=== PATIENT | male | born 1975 | race Caucasian/White ===

== ENCOUNTER 2017-08-12 15:08 | Observation (INO) ==
--- NOTE | 2017-08-12 15:23 | Emergency Department Note ---
Disposition Clinical Impression: Hyperglycemia, Elevated blood ketone body level, Hyponatremia Disposition: Admitted As Inpatient Condition: Fair Time of Disposition: 17:58 General Adult HPI - General Chief complaint: ED General Medical Stated complaint: Hyperglycemia Time Seen by Provider: 08/12/17 15:11 Source: patient, EMS Mode of arrival: EMS Limitations: no limitations Nursing Notes Reviewed: Yes Vital Signs Reviewed: Yes - History of Present Illness HPI Narrative: Patient is a 42-year-old male that presents the emergency department via EMS for hyperglycemia. Patient states that he has not been feeling well for the past couple of weeks and states that he has been feeling nauseated, having vision changes and having some tingling in his hands. Patient states that he takes metformin and glipizide for his type 2 diabetes. Patient denies any insulin use. Patient states that he has been compliant with his medications. Patient does state that he has never been in DKA. States that he has never had a blood glucose this high before. The blood glucose was reported by urgent care to be greater than 600. EMS also stated that there glucometer read high which would indicate a blood sugar greater than 600. Patient denies any vomiting but does state that he has been nauseated. Denies any nausea at this time. Patient also reports that he has had a fever and chills recently. Patient also reports that he has had a significant amount of thirst and urination. Pain Scale: 0 - Related Data Home Medications Medication Instructions Recorded Confirmed Atorvastatin 08/12/17 Glimepiride 08/12/17 Lisinopril-HCTZ 10-12.5 08/12/17 Loratadine 08/12/17 Metoprolol 08/12/17 Sertraline HCl 08/12/17 metFORMIN 08/12/17 Allergies Allergy/AdvReac Type Severity Reaction Status Date / Time No Known Allergies Allergy Verified 08/12/17 14:14 All systems ED: reviewed and negative except as stated. Constitutional: Reports: fever, chills Cardiovascular: Denies: chest pain Respiratory: Denies: dyspnea Gastrointestinal: Reports: nausea. Denies: abdominal pain, vomiting Genitourinary: Reports: frequency. Denies: dysuria Endocrine: Reports: polydipsia, polyuria Past Medical History - Past Medical History Medical history: Reports: atrial fibrillation, diabetes, hyperlipidemia, hypertension - Social History Smoking Status: Current every day smoker Smokeless Tobacco Status: No Alcohol use: Reports: none Drug use: Reports: none Physical Exam - General Limitations: no limitations General appearance: alert, in no apparent distress - Head Head exam: atraumatic, normocephalic - Eye Eye exam: Present: normal appearance, EOMI - Neck Neck exam: Present: normal inspection, full ROM, trachea midline - Respiratory Respiratory exam: Present: normal lung sounds bilaterally. Absent: respiratory distress, wheezes - Cardiovascular Cardiovascular exam: Present: regular rate, normal rhythm, normal heart sounds, +S1, +S2 - Abdominal Exam Abdominal exam: Present: soft, Non-Tender, normal bowel sounds - Neurological Exam Neurological exam: Present: alert, oriented X3 - Psychiatric Psychiatric exam: Present: normal affect, normal mood - Skin Skin exam: Present: warm, dry, intact Course - Reevaluation(s) Reevaluation #1: Patient's blood glucose was rechecked after receiving a little over a liter of fluids and his blood sugar was 463. Due to the patient having a potassium of 4.0 we will give 40 of oral potassium here in the emergency department prior to the patient being admitted to the hospital. Time: 17:19 Vital Signs Temperature 98.7 F 08/12/17 15:09 Pulse Rate 98 08/12/17 15:09 Respiratory Rate 18 08/12/17 15:09 Blood Pressure 124/76 08/12/17 15:09 O2 Sat by Pulse Oximetry 98 08/12/17 15:09 Temperature 98.7 F 08/12/17 15:09 Pulse Rate 90 08/12/17 17:04 Respiratory Rate 16 08/12/17 17:04 Blood Pressure 124/89 08/12/17 17:04 O2 Sat by Pulse Oximetry 95 08/12/17 17:04 Oxygen Delivery Oxygen Delivery Room Air Medical Decision Making - MDM Narrative Medical decision making narrative: Due to the patient presenting with hyperglycemia and type 2 diabetes there is concern that the patient potentially be in diabetic ketoacidosis. We will obtain a CBC, CMP, point of care glucose, EKG, beta hydroxybutyric acid and a venous blood gas to evaluate this patient. Patient will also be started on IV fluids. Patient did have a significantly elevated blood glucose of 614. The patient is been given 2 liters of normal saline here in the emergency department. [facility] and 1 from the hospital. The patient's blood gas was 7.44. His sodium 1 was low at 119 however when you correct for the elevated glucose it is 131. Based on the correction I do not feel that there is any supplemental sodium that is needed at this time. I feel that due to the patient being a type II diabetic and being compliant with his medications that is necessary to admit the patient to the hospital for unknown cause of the patient's hyperglycemia. The patient does not have an anion gap at this time I do not feel the patient is in DKA. However the patient does have elevated serum ketones at this time. The patient's chest x-ray showed no acute process. I called and spoke the admitting hospitalist Dr. Mcgarry and he has accepted the patient to their service. The patient be admitted to the hospital this time for further evaluation and management. - Lab Data Lab results reviewed: Yes I reviewed the patient's lab results. Result diagrams: 08/12/17 15:35 08/12/17 15:35 Lab Results 08/12/17 08/12/17 08/12/17 Range/Units 15:35 15:35 15:35 WBC 9.2 (4.3-11.1) K/mcL RBC 5.03 (4.19-5.50) M/mcL Hgb 15.4 (12.9-16.9) g/dL Hct 41.7 (37.5-50.1) % MCV 82.9 L (83.0-100.0) fL MCH 30.6 (28.0-33.3) pg MCHC 36.9 H (31.6-35.5) g/dL RDW 12.6 (11.5-14.5) % Plt Count 295 (140-400) K/mcL MPV 10.1 (9.4-12.4) fL Immature Gran % 0.1 (0-4) % Seg Neutrophils % 70.2 % Lymphocytes % 23.2 % Monocytes % 5.4 % Eosinophils % 0.8 % Basophils % 0.3 % Neutrophils # 6.5 (1.6-8.9) K/mcL Lymphocytes # 2.1 (0.6-4.6) K/mcL Monocytes # 0.5 (0.0-1.3) K/mcL Eosinophils # 0.1 (0.0-0.6) K/mcL Basophils # 0.0 (0.0-0.2) K/mcL Immature Plt Fraction 5.6 (1.1-6.1) % VBG pH (7.32-7.42) pH Units VBG pCO2 (41-51) mmHg VBG pO2 (25-50) mmHg VBG HCO3 (21-27) mEq/L Sodium 119 L* (136-145) mEq/L Potassium 4.0 (3.5-5.1) mEq/L Chloride 83 L (98-107) mEq/L Carbon Dioxide 27 (23-29) mEq/L BUN 21 H (6-20) mg/dL Creatinine 0.87 (0.70-1.30) mg/dL Est GFR ( Amer) > 60 (> 60) Est GFR (Non-Af Amer) > 60 (> 60) BUN/Creatinine Ratio 24 (6-26) Glucose 614 H* (70-105) mg/dL Calculated Osmolality 280 (280-300) Calcium 9.9 (8.6-10.3) mg/dL Magnesium 1.9 (1.6-2.6) mg/dL Total Bilirubin 0.6 (0.3-1.0) mg/dL AST 17 (13-39) Units/L ALT 20 (7-52) Units/L Alkaline Phosphatase 111 H (34-104) Units/L Serum Total Protein 7.0 (6.4-8.9) g/dL Albumin 4.1 (3.5-5.7) g/dL Globulin 2.9 (2.4-3.5) g/dL Albumin/Globulin Ratio 1.4 (1.1-2.2) Beta-Hydroxybutyric Acd 0.28 H (0.02-0.27) mmol/L Urine Color (Yellow) Urine Clarity (Clear) Urine pH (5.0-8.0) pH Units Ur Specific [place] (1.010-1.025) Urine Protein (Neg-Trace) mg/dL Urine Glucose (UA) (Normal) mg/dL Urine Ketones (Negative) mg/dL Urine Blood (Negative) Urine Nitrite (Negative) Urine Bilirubin (Negative) Urine Urobilinogen (Normal) mg/dL Ur Leukocyte Esterase (Negative) Ur Culture Indicated? (NO) 08/12/17 08/12/17 Range/Units 16:09 16:11 WBC (4.3-11.1) K/mcL RBC (4.19-5.50) M/mcL Hgb (12.9-16.9) g/dL Hct (37.5-50.1) % MCV (83.0-100.0) fL MCH (28.0-33.3) pg MCHC (31.6-35.5) g/dL RDW (11.5-14.5) % Plt Count (140-400) K/mcL MPV (9.4-12.4) fL Immature Gran % (0-4) % Seg Neutrophils % % Lymphocytes % % Monocytes % % Eosinophils % % Basophils % % Neutrophils # (1.6-8.9) K/mcL Lymphocytes # (0.6-4.6) K/mcL Monocytes # (0.0-1.3) K/mcL Eosinophils # (0.0-0.6) K/mcL Basophils # (0.0-0.2) K/mcL Immature Plt Fraction (1.1-6.1) % VBG pH 7.44 H (7.32-7.42) pH Units VBG pCO2 42 (41-51) mmHg VBG pO2 79 H (25-50) mmHg VBG HCO3 29 H (21-27) mEq/L Sodium (136-145) mEq/L Potassium (3.5-5.1) mEq/L Chloride (98-107) mEq/L Carbon Dioxide (23-29) mEq/L BUN (6-20) mg/dL Creatinine (0.70-1.30) mg/dL Est GFR ( Amer) (> 60) Est GFR (Non-Af Amer) (> 60) BUN/Creatinine Ratio (6-26) Glucose (70-105) mg/dL Calculated Osmolality (280-300) Calcium (8.6-10.3) mg/dL Magnesium (1.6-2.6) mg/dL Total Bilirubin (0.3-1.0) mg/dL AST (13-39) Units/L ALT (7-52) Units/L Alkaline Phosphatase (34-104) Units/L Serum Total Protein (6.4-8.9) g/dL Albumin (3.5-5.7) g/dL Globulin (2.4-3.5) g/dL Albumin/Globulin Ratio (1.1-2.2) Beta-Hydroxybutyric Acd (0.02-0.27) mmol/L Urine Color Yellow (Yellow) Urine Clarity Clear (Clear) Urine pH 6.0 (5.0-8.0) pH Units Ur Specific [place] > 1.030 H (1.010-1.025) Urine Protein Negative (Neg-Trace) mg/dL Urine Glucose (UA) >=1000 H (Normal) mg/dL Urine Ketones Negative (Negative) mg/dL Urine Blood Negative (Negative) Urine Nitrite Negative (Negative) Urine Bilirubin Negative (Negative) Urine Urobilinogen Normal (Normal) mg/dL Ur Leukocyte Esterase Negative (Negative) Ur Culture Indicated? NO (NO) - Radiology Data Radiology results reviewed: Yes I reviewed the patient's radiology results. Chest X-Ray 08/12/17 15:52 IMPRESSION: No acute process. D/ / Lino Rios MD / Lino Rios MD Interpreting Provider: Lino Rios MD - EKG Data EKG #1 EKG attestation: Yes I reviewed and interpreted this EKG. EKG results narrative: EKG shows a sinus rhythm at a rate of 96 bpm, MD interval of 116, QS duration 93 , QTC of 392. No evidence of STEMI and EKG.
[2017-08-12] MEDS ORDERED: 0.9 % Sodium Chloride 1,000 ML IVC ONE (15:25)
--- NOTE | 2017-08-12 15:51 | Emergency Department Note ---
Disposition Clinical Impression: Hyperglycemia, Elevated blood ketone body level, Hyponatremia Disposition: Admitted As Inpatient Condition: Fair General Adult HPI - General Chief complaint: ED General Medical Stated complaint: Hyperglycemia Time Seen by Provider: 08/12/17 15:11 Source: patient, EMS Mode of arrival: EMS Limitations: no limitations Nursing Notes Reviewed: Yes Vital Signs Reviewed: Yes - History of Present Illness Pain Scale: 0 - Related Data Home Medications Medication Instructions Recorded Confirmed Atorvastatin 40 mg PO DAILY 08/12/17 08/12/17 Glimepiride 4 mg PO DAILY 08/12/17 08/12/17 Lisinopril-HCTZ 10-12.5 20 - 25 mg PO DAILY 08/12/17 08/12/17 Loratadine 10 mg PO DAILY 08/12/17 08/12/17 Metoprolol 50 mg PO BID 08/12/17 08/12/17 Sertraline HCl 100 mg PO DAILY 08/12/17 08/12/17 metFORMIN 1,000 mg PO BID 08/12/17 08/12/17 Allergies Allergy/AdvReac Type Severity Reaction Status Date / Time No Known Allergies Allergy Verified 08/12/17 14:14 Constitutional: Reports: fever, chills Cardiovascular: Denies: chest pain Respiratory: Denies: dyspnea Gastrointestinal: Reports: nausea. Denies: abdominal pain, vomiting Genitourinary: Reports: frequency. Denies: dysuria Endocrine: Reports: polydipsia, polyuria Past Medical History - Past Medical History Medical history: Reports: atrial fibrillation, diabetes, hyperlipidemia, hypertension - Social History Smoking Status: Current every day smoker Smokeless Tobacco Status: No Alcohol use: Reports: none Drug use: Reports: none Physical Exam - General Limitations: no limitations General appearance: alert, in no apparent distress Course - Reevaluation(s) Reevaluation #1: I examined this patient and my medical decision-making was reviewed with Dr. Mckeon. I agree with the documented findings, disposition and treatment plan. This is a 42 year-old male with history of HTN, HLD, AF, and type II diabetes. He presents with symptoms suggestive of hyperglycemia, gradually worsening for the past 2 weeks: fatigue/malaise, blurred vision, polydipsia/polyuria, nausea, dry mouth, and blurred vision. He went to urgent care this afternoon and was found to have severe hyperglycemia. EMS started IVF en route. Patient denies any associated fever, skin changes, chest pain, or dyspnea. He claims compliance with his oral hypoglycemics. On exam, patient has stable vitals. Dry mucous membranes. Heart, lung exams unremarkable. We will continue to hydrate, check labs to rule out DKA and electrolyte abnormalities, and also check for underlying causes. Time: 15:48 Vital Signs Temperature 98.7 F 08/12/17 15:09 Pulse Rate 98 08/12/17 15:09 Respiratory Rate 18 08/12/17 15:09 Blood Pressure 124/76 08/12/17 15:09 O2 Sat by Pulse Oximetry 98 08/12/17 15:09 Temperature 98.7 F 08/12/17 15:09 Pulse Rate 90 08/12/17 17:04 Respiratory Rate 16 08/12/17 18:00 Blood Pressure 132/82 08/12/17 18:00 O2 Sat by Pulse Oximetry 95 08/12/17 17:04 Oxygen Delivery Oxygen Delivery Room Air Medical Decision Making - Lab Data Lab results reviewed: Yes I reviewed the patient's lab results. Lab results narrative: Hyponatremia (slightly less than predicted based on hyperglycemia) noted. Potassium 4.0. Mild ketones. Result diagrams: 08/12/17 15:35 08/12/17 15:35 Lab Results 08/12/17 08/12/17 08/12/17 Range/Units 15:35 15:35 15:35 WBC 9.2 (4.3-11.1) K/mcL RBC 5.03 (4.19-5.50) M/mcL Hgb 15.4 (12.9-16.9) g/dL Hct 41.7 (37.5-50.1) % MCV 82.9 L (83.0-100.0) fL MCH 30.6 (28.0-33.3) pg MCHC 36.9 H (31.6-35.5) g/dL RDW 12.6 (11.5-14.5) % Plt Count 295 (140-400) K/mcL MPV 10.1 (9.4-12.4) fL Immature Gran % 0.1 (0-4) % Seg Neutrophils % 70.2 % Lymphocytes % 23.2 % Monocytes % 5.4 % Eosinophils % 0.8 % Basophils % 0.3 % Neutrophils # 6.5 (1.6-8.9) K/mcL Lymphocytes # 2.1 (0.6-4.6) K/mcL Monocytes # 0.5 (0.0-1.3) K/mcL Eosinophils # 0.1 (0.0-0.6) K/mcL Basophils # 0.0 (0.0-0.2) K/mcL Immature Plt Fraction 5.6 (1.1-6.1) % VBG pH (7.32-7.42) pH Units VBG pCO2 (41-51) mmHg VBG pO2 (25-50) mmHg VBG HCO3 (21-27) mEq/L Sodium 119 L* (136-145) mEq/L Potassium 4.0 (3.5-5.1) mEq/L Chloride 83 L (98-107) mEq/L Carbon Dioxide 27 (23-29) mEq/L BUN 21 H (6-20) mg/dL Creatinine 0.87 (0.70-1.30) mg/dL Est GFR ( Amer) > 60 (> 60) Est GFR (Non-Af Amer) > 60 (> 60) BUN/Creatinine Ratio 24 (6-26) Glucose 614 H* (70-105) mg/dL Calculated Osmolality 280 (280-300) Calcium 9.9 (8.6-10.3) mg/dL Magnesium 1.9 (1.6-2.6) mg/dL Total Bilirubin 0.6 (0.3-1.0) mg/dL AST 17 (13-39) Units/L ALT 20 (7-52) Units/L Alkaline Phosphatase 111 H (34-104) Units/L Serum Total Protein 7.0 (6.4-8.9) g/dL Albumin 4.1 (3.5-5.7) g/dL Globulin 2.9 (2.4-3.5) g/dL Albumin/Globulin Ratio 1.4 (1.1-2.2) Beta-Hydroxybutyric Acd 0.28 H (0.02-0.27) mmol/L Urine Color (Yellow) Urine Clarity (Clear) Urine pH (5.0-8.0) pH Units Ur Specific [place] (1.010-1.025) Urine Protein (Neg-Trace) mg/dL Urine Glucose (UA) (Normal) mg/dL Urine Ketones (Negative) mg/dL Urine Blood (Negative) Urine Nitrite (Negative) Urine Bilirubin (Negative) Urine Urobilinogen (Normal) mg/dL Ur Leukocyte Esterase (Negative) Ur Culture Indicated? (NO) 08/12/17 08/12/17 Range/Units 16:09 16:11 WBC (4.3-11.1) K/mcL RBC (4.19-5.50) M/mcL Hgb (12.9-16.9) g/dL Hct (37.5-50.1) % MCV (83.0-100.0) fL MCH (28.0-33.3) pg MCHC (31.6-35.5) g/dL RDW (11.5-14.5) % Plt Count (140-400) K/mcL MPV (9.4-12.4) fL Immature Gran % (0-4) % Seg Neutrophils % % Lymphocytes % % Monocytes % % Eosinophils % % Basophils % % Neutrophils # (1.6-8.9) K/mcL Lymphocytes # (0.6-4.6) K/mcL Monocytes # (0.0-1.3) K/mcL Eosinophils # (0.0-0.6) K/mcL Basophils # (0.0-0.2) K/mcL Immature Plt Fraction (1.1-6.1) % VBG pH 7.44 H (7.32-7.42) pH Units VBG pCO2 42 (41-51) mmHg VBG pO2 79 H (25-50) mmHg VBG HCO3 29 H (21-27) mEq/L Sodium (136-145) mEq/L Potassium (3.5-5.1) mEq/L Chloride (98-107) mEq/L Carbon Dioxide (23-29) mEq/L BUN (6-20) mg/dL Creatinine (0.70-1.30) mg/dL Est GFR ( Amer) (> 60) Est GFR (Non-Af Amer) (> 60) BUN/Creatinine Ratio (6-26) Glucose (70-105) mg/dL Calculated Osmolality (280-300) Calcium (8.6-10.3) mg/dL Magnesium (1.6-2.6) mg/dL Total Bilirubin (0.3-1.0) mg/dL AST (13-39) Units/L ALT (7-52) Units/L Alkaline Phosphatase (34-104) Units/L Serum Total Protein (6.4-8.9) g/dL Albumin (3.5-5.7) g/dL Globulin (2.4-3.5) g/dL Albumin/Globulin Ratio (1.1-2.2) Beta-Hydroxybutyric Acd (0.02-0.27) mmol/L Urine Color Yellow (Yellow) Urine Clarity Clear (Clear) Urine pH 6.0 (5.0-8.0) pH Units Ur Specific [place] > 1.030 H (1.010-1.025) Urine Protein Negative (Neg-Trace) mg/dL Urine Glucose (UA) >=1000 H (Normal) mg/dL Urine Ketones Negative (Negative) mg/dL Urine Blood Negative (Negative) Urine Nitrite Negative (Negative) Urine Bilirubin Negative (Negative) Urine Urobilinogen Normal (Normal) mg/dL Ur Leukocyte Esterase Negative (Negative) Ur Culture Indicated? NO (NO) - Radiology Data Radiology results reviewed: Yes I reviewed the patient's radiology results. XR/XR chest 1V IMPRESSION: No acute process. - EKG Data EKG #1 EKG attestation: Yes I reviewed and interpreted this EKG. EKG shows normal: sinus rhythm Rate: normal [place]/QRS: right axis deviation (slight) Interpretation: normal EKG
[2017-08-12 15:56] LABS: Basophils % 0.3 %; Segmented Neutrophils % 70.2 %
[2017-08-12 16:12] LABS: Eosinophils # 0.1 K/mcL (0.0-0.6); Eosinophils % 0.8 %; Hematocrit 41.7 % (37.5-50.1); Hemoglobin 15.4 g/dL (12.9-16.9); Immature Granulocytes % 0.1 % (0-4); Immature Platelets 5.6 % (1.1-6.1); Lymphocytes # 2.1 K/mcL (0.6-4.6); Lymphocytes % 23.2 %; Mean Corpuscular HGB Conc 36.9 g/dL (31.6-35.5); Mean Corpuscular Hemoglobin 30.6 pg (28.0-33.3); Mean Corpuscular Volume 82.9 fL (83.0-100.0); Mean Platelet Volume 10.1 fL (9.4-12.4); Monocytes # 0.5 K/mcL (0.0-1.3); Monocytes % 5.4 %; Neutrophils # 6.5 K/mcL (1.6-8.9); Platelet Count 295 K/mcL (140-400); Red Blood Count 5.03 M/mcL (4.19-5.50); Red Cell Distribution Width 12.6 % (11.5-14.5)
[2017-08-12 16:17] LABS: VBG HCO3 29 mEq/L (21-27); VBG PCO2 42 mmHg (41-51); VBG PH 7.44 pH Units (7.32-7.42); VBG PO2 79 mmHg (25-50)
[2017-08-12 16:25] LABS: Bilirubin,Urine Negative (Negative); Blood,Urine Negative (Negative); Clarity,Urine Clear (Clear); Color,Urine Yellow (Yellow); Glucose,Urine (UA) >=1000 mg/dL (Normal); Ketones,Urine Negative (Negative); Leukocyte Esterase,Urine Negative (Negative); Nitrite,Urine Negative (Negative); Protein,Urine Negative (Neg-Trace); Specific Gravity,Urine > 1.030 (1.010-1.025); Urobilinogen,Urine Normal (Normal)
[2017-08-12 16:27] LABS: Alanine Aminotransferase 20 Units/L (7-52); Albumin 4.1 g/dL (3.5-5.7); Albumin/Globulin Ratio 1.4 (1.1-2.2); Alkaline Phosphatase 111 Units/L (34-104); Aspartate Amino Transferase 17 Units/L (13-39); BUN/Creatinine Ratio 24 (6-26); Bilirubin,Total 0.6 mg/dL (0.3-1.0); Blood Urea Nitrogen 21 mg/dL (6-20); Calcium 9.9 mg/dL (8.6-10.3); Carbon Dioxide 27 mEq/L (23-29); Chloride 83 mEq/L (98-107); Globulin 2.9 g/dL (2.4-3.5); Glucose 614 mg/dL (70-105); Magnesium 1.9 mg/dL (1.6-2.6); Osmolality,Calculated 280 (280-300); Sodium 119 mEq/L (136-145); eGFR For African Americans > 60 (> 60); eGFR For Non-African Americans > 60 (> 60)
[2017-08-12] MEDS ORDERED: Potassium Chloride Elixir 20 MEQ/15 ML UDC PO ONE (17:16)
[2017-08-12] MEDS ORDERED: Naloxone 0.4 MG/ML INJ IVP PRN (17:44)
[2017-08-12] MEDS ORDERED: 0.9 % Sodium Chloride 1,000 ML IVC SCH (17:45)
[2017-08-12] MEDS ORDERED: Dextrose Gel 15 GM/37.5 ML TUBE PO PRN ×2 (17:50)
[2017-08-12] MEDS ORDERED: *HR* Dextrose 50 % in Water (Syg) 50 ML SYRINGE IVP PRN (17:50)
[2017-08-12] MEDS ORDERED: D5% in Water 1,000 ML IVC PRN (17:50)
--- NOTE | 2017-08-12 17:56 | Internal Med History&Physical ---
Date of Encounter: 08/12/17 Time of Encounter: 17:52 Internal Medicine - H&P: HPI Chief complaint: Dizziness/visual changes Admitted From: Emergency Dept Plans for Post Hospital Care: Home History of present illness: Mr. Bautista is a 42 year old male who works in the [employer] at [employer]. Past medical history: Diabetes, hypertension, dyslipidemia, documented atrial fibrillation in the previous notes but I did not find any evidence for same. Patient may have paroxysmal atrial fibrillation. Patient is not on any anticoagulation Patient is experiencing for the past couple of weeks persistent visual changes/ dizziness/tingling numbness in bilateral upper as well as lower extremity. Today patient was experiencing dizziness which was persistently ongoing and that is the reason he checked his blood sugar which was recorded as a very high. For this reason patient came to emergency room for further evaluation. Patient denies chest pain, nausea, vomiting, dizziness and diarrhea. Workup in the emergency room: Patient was evaluated in the emergency room. Baseline labs were drawn. Noted that patient's capillary blood glucose/serum glucose was more than 600. Patient received IV fluids. Potassium was replaced. Reason for admission: Uncontrolled hyperglycemia likely secondary to noncompliance/progression of the disease Family history: Noncontributory Past Med Surg Social Fam HX - Past Medical History Medical history: atrial fibrillation, diabetes, hyperlipidemia, hypertension - Social History Smoking Status: Current every day smoker Smokeless Tobacco Status: No Alcohol use: none Drug use: none Internal Medicine - H&P: Meds Atorvastatin 40 mg PO DAILY 08/12/17 [History] Glimepiride 4 mg PO DAILY 08/12/17 [History] Lisinopril-HCTZ 10-12.5 20 - 25 mg PO DAILY 08/12/17 [History] Loratadine 10 mg PO DAILY 08/12/17 [History] Metoprolol 50 mg PO BID 08/12/17 [History] Sertraline HCl 100 mg PO DAILY 08/12/17 [History] metFORMIN 1,000 mg PO BID 08/12/17 [History] 3 Allergy/AdvReac Type Severity Reaction Status Date / Time No Known Allergies Allergy Verified 08/12/17 14:14 All Systems PM: A 10-system review of systems was performed and is negative for pertinent findings except as documented above in the HPI. - Constitutional Constitutional: excessive sweating, fatigue, lethargy, malaise, weakness, weight gain, no chills, no fever(s), no night sweats - EENT Eyes: no change in vision, no discharge, no pain, no photophobia Ears: no ear discharge, no ear pain, no tinnitus Nose, mouth and throat: no dysphagia, no nasal discharge, no neck pain, no sore throat - Cardiovascular Cardiovascular ROS IM: no chest pain, no diaphoresis, no dyspnea, no lightheadedness, no palpitations, no syncope - Respiratory Respiratory: no cough, no dyspnea, no wheezing, no excessive phlegm production - Gastrointestinal Gastrointestinal: no abdominal pain, no diarrhea, no hematemesis, no hematochezia, no melena, no nausea, no vomiting - Musculoskeletal Musculoskeletal ROS IM: no numbness, no tingling - Integumentary Integumentary IM: no rash, no unusual bruising - Neurological Neurological ROS: no confusion, no convulsions, no focal weakness, no numbness, no tingling, no tremor(s) - Hematologic/Lymphatic Hematologic/Lymphatic: no easy bruising - Constitutional Vitals: Temp Pulse Resp BP Pulse Ox 98.7 F 90 16 124/89 95 08/12/17 15:09 08/12/17 17:04 08/12/17 17:04 08/12/17 17:04 08/12/17 17:04 General appearance: Present: A&O X 3, pleasant, no acute distress, answers questions appropriately - Head Head exam: Present: atraumatic, normocephalic - Eye Eye exam: Present: PERRL, conjuntiva pink, sclera anicteric Pupils: Present: PERRL - Neck Neck exam general surgery: Present: supple, trachea midline. Absent: lymphadenopathy - Respiratory Respiratory exam: Present: CTAB. Absent: accessory muscle use, rales, rhonchi, wheezes - Cardiovascular Cardiovascular exam: Present: RRR, +S1, +S2. Absent: diastolic murmur, gallop, rubs, systolic murmur - GI/Abdominal GI/Abdominal exam: Present: normal bowel sounds, soft, no peritoneal signs. Absent: distended, tenderness - Extremities Exam Extremities exam: Present: warm, radial pulses palpable and symmetrical. Absent : calf tenderness, cyanotic, pedal edema - Neurological Exam Neurological exam: Present: CN II-XII intact, oriented X3, no focal deficits. Absent: pronater drift, facial droop, speech deficit - Skin Skin exam: Present: dry, intact Internal Med - H&P Results - Labs CBC & Chem 7: 08/12/17 15:35 08/12/17 15:35 - Assessment and plan (1) Hyperglycemia Current Visit: Yes Status: Acute Assessment and plan: Patient does have type 2 diabetes mellitus. He is taking presently oral hypoglycemic agent. Either this is a noncompliance/progression of disease. Patient blood sugar is more than 600. Patient might need a insulin to control his blood sugar. Sodium: 119: Pseudohyponatremia No anion gap noted. VBG pH: 7.44. Assessment: Uncontrolled diabetes mellitus likely secondary to progression of disease in/ noncompliance. Plan: Basal insulin: Levemir 32 units in the night. Nutritional insulin: Humalog 10 units 3 times a day. Correctional insulin: 3 times a day at bedtime. I examined this patient in the emergency room #18. Plan of care explained to the patient. He verbalized understanding. We will continue to monitor patient's blood sugar very closely. (2) Vision changes Current Visit: No Status: Acute Assessment and plan: Likely secondary to hyperglycemia (3) Hypertension Current Visit: Yes Status: Acute Assessment and plan: Patient is presently on lisinopril/metoprolol/hydrochlorothiazide. We will continue his home medication. Patient's blood pressure is within acceptable range. Continue blood pressure monitoring as inpatient Qualifiers: Hypertension type: essential hypertension Qualified Code(s): I10 - Essential (primary) hypertension (4) Dyslipidemia Current Visit: Yes Status: Acute Assessment and plan: Patient is presently taking Lipitor 40 mg. we will get lipid panel tomorrow morning. (5) DVT prophylaxis Current Visit: Yes Status: Acute Assessment and plan: Heparin Medical decision making: This patient has a moderate to severe risk of worsening in spite of being on appropriate medication due to the underlying complex medical condition. - Time Spent With Patient Total time spent is greater than 50% in coordination of care (as documented) at patient's floor/unit and/or counseling patient:
[2017-08-12] MEDS: Insulin LISPRO 300 UNITS/3 ML VIAL SQ SCH (18:51)
[2017-08-12] MEDS: *HR* Heparin 5,000 UNIT/ML VIAL SQ SCH (20:51)
[2017-08-12] MEDS ORDERED: Insulin DETEMIR 100 UNIT/ML X5UNITS SQ SCH (21:00)
[2017-08-13 01:38] LABS: Basophils % 0.4 %; Eosinophils # 0.1 K/mcL (0.0-0.6); Hematocrit 40.3 % (37.5-50.1); Hemoglobin 14.5 g/dL (12.9-16.9); Immature Granulocytes % 0.1 % (0-4); Lymphocytes # 3.2 K/mcL (0.6-4.6); Lymphocytes % 39.5 %; Mean Corpuscular Hemoglobin 30.4 pg (28.0-33.3); Mean Corpuscular Volume 84.5 fL (83.0-100.0); Mean Platelet Volume 9.7 fL (9.4-12.4); Monocytes # 0.4 K/mcL (0.0-1.3); Monocytes % 5.2 %; Neutrophils # 4.3 K/mcL (1.6-8.9); Platelet Count 239 K/mcL (140-400); Red Blood Count 4.77 M/mcL (4.19-5.50); Red Cell Distribution Width 12.6 % (11.5-14.5); Segmented Neutrophils % 53.8 %
[2017-08-13 02:10] LABS: Alanine Aminotransferase 18 Units/L (7-52); Albumin 3.8 g/dL (3.5-5.7); Albumin/Globulin Ratio 1.4 (1.1-2.2); Alkaline Phosphatase 95 Units/L (34-104); Aspartate Amino Transferase 17 Units/L (13-39); BUN/Creatinine Ratio 21 (6-26); Bilirubin,Total 0.5 mg/dL (0.3-1.0); Blood Urea Nitrogen 14 mg/dL (6-20); Carbon Dioxide 27 mEq/L (23-29); Chloride 94 mEq/L (98-107); Chol/HDL Ratio 8.2 (0-4.9); Cholesterol 188 mg/dL (< 200); Globulin 2.7 g/dL (2.4-3.5); Glucose 312 mg/dL (70-105); HDL Cholesterol 23 mg/dL (40-59); Magnesium 1.7 mg/dL (1.6-2.6); Osmolality,Calculated 278 (280-300); Phosphorous 2.9 mg/dL (2.7-4.5); Potassium 3.2 mEq/L (3.5-5.1); Sodium 128 mEq/L (136-145); Total Protein 6.5 g/dL (6.4-8.9); Triglycerides 1060 mg/dL (< 150); eGFR For African Americans > 60 (> 60); eGFR For Non-African Americans > 60 (> 60)
[2017-08-13 02:57] LABS: Activated Partial Thrombo Time 25.3 Seconds (26.0-36.0); INR 1.1; Prothrombin Time 11.4 Seconds (9.4-12.1)
[2017-08-13] MEDS: *HR* Heparin 5,000 UNIT/ML VIAL SQ SCH (06:05)
[2017-08-13] MEDS: Insulin LISPRO 300 UNITS/3 ML VIAL SQ SCH ×4 (08:34→12:50)
--- NOTE | 2017-08-13 08:38 | Internal Med Progress Note ---
Date of Encounter: 08/13/17 Time of Encounter: 08:36 - Assessment and plan (1) Hyperglycemia Current Visit: Yes Status: Acute Assessment and plan: Known history of type II diabetes Presented with elevated blood sugars to > 600 No anion gap, normal beta hydroxybutyrate, VBG pH 7.44 Blood sugars at 312 this morning. Potassium 3.2, replaced with 40mEq x2 since admission. A1C 15.1 Uncontrolled diabetes type II likely due to dehydration and noncompliance. Continue with Levemir 32 Units qhs, Humalog 10 Units tid, and insulin correction scale. Discontinue home Amaryl. Continue with diabetic diet. Continue monitoring potassium levels and replace as needed. Will need to be discharged with insulin and diabetic education regarding. (2) Vision changes Current Visit: Yes Status: Resolved Assessment and plan: Resolved. Most likely related to hyperglycemia. (3) Hypertension Current Visit: Yes Status: Chronic Assessment and plan: Bp controlled at 127.83 this morning. Continue with home medications for chronic disease management including lisinopril, metoprolol, and hctz. Continue monitoring bp. Qualifiers: Hypertension type: essential hypertension Qualified Code(s): I10 - Essential (primary) hypertension (4) Dyslipidemia Current Visit: Yes Status: Chronic Assessment and plan: Known history of dyslipidemia on home Lipitor 40mg. TG 1060, Chol 188, LDL and VLDL TNP, HDL 23. Continue with liptor at 40mg and start fenofibrate. Consider nutrition consult. (5) DVT prophylaxis Current Visit: Yes Status: Acute Assessment and plan: Heparin for dvt ppx. - Time Spent With Patient Total time spent is greater than 50% in coordination of care (as documented) at patient's floor/unit and/or counseling patient: - Subjective Interval history: Patient reports doing well overnight. Vision blurriness has resolved since improving his sugars. Patient also reports improved energy and decrease urination. At home he is only on oral agents for his diabetes. Reports that his blood sugars may be elevated because he was dehydrated while working and kept drinking lots of Hi-C. A1C returned at 15.1. Also taking lipitor 40mg once a day for his cholesterol levels. Reports considering diet changes, but hasn't made any changes yet. Denies fevers, chills, sweats, headaches, nausea, vomiting, abdominal pain, changes in bowels, weakness, or loss of sensation. - Constitutional Vitals: Temp Pulse Resp BP Pulse Ox 98 F 87 18 127/83 95 08/13/17 07:00 08/13/17 07:00 08/13/17 07:00 08/13/17 07:00 08/13/17 04:35 General appearance: Present: A&O X 3, pleasant, no acute distress, obese, answers questions appropriately - Head Head exam: Present: atraumatic, normal inspection, normocephalic - Eye Eye exam: Present: EOMI, normal appearance - ENT ENT exam: Present: mucous membranes moist, normal exam - Neck Neck exam general surgery: Present: full ROM, normal inspection, trachea midline - Respiratory Respiratory exam: Present: CTAB. Absent: rales, rhonchi, wheezes - Cardiovascular Cardiovascular exam: Present: RRR, +S1, +S2 - GI/Abdominal GI/Abdominal exam: Present: normal bowel sounds, soft. Absent: tenderness - Extremities Exam Extremities exam: Present: full ROM, normal inspection, warm, radial pulses palpable and symmetrical. Absent: pedal edema, tenderness Additional comments: thick callus plantar surfaces of feet bilateraly, with normal sensation bilaterally and no open sores or ulcers. - Neurological Exam Neurological exam: Present: alert, oriented X3, no focal deficits - Skin Skin exam: Present: dry, intact, normal color, warm Internal Medicine: Result - Labs CBC & Chem 7: 08/13/17 01:13 08/13/17 01:13 Labs: Short CBC 08/13/17 Range/Units 01:13 WBC 8.1 (4.3-11.1) K/mcL Hgb 14.5 (12.9-16.9) g/dL Hct 40.3 (37.5-50.1) % Plt Count 239 (140-400) K/mcL Neutrophils # 4.3 (1.6-8.9) K/mcL BMP 08/13/17 01:13 Sodium 128 L D Potassium 3.2 L Chloride 94 L Carbon Dioxide 27 BUN 14 Creatinine 0.66 L Glucose 312 H Calcium 9.0 Cardiac Enzymes 08/12/17 08/13/17 08/13/17 Range/Units 18:26 01:13 06:15 Troponin I < 0.03 < 0.03 < 0.03 (< 0.04) ng/mL Liver Function 08/13/17 Range/Units 01:13 Total Bilirubin 0.5 (0.3-1.0) mg/dL AST 17 (13-39) Units/L ALT 18 (7-52) Units/L Alkaline Phosphatase 95 (34-104) Units/L Albumin 3.8 (3.5-5.7) g/dL - ABG Interpretation ABG results: PT/INR, D-dimer PT 11.4 Seconds (9.4-12.1) 08/13/17 01:13 Consult Discharge Plan - Plan Referrals: Ivette Marin DO [Primary Care Provider] -
[2017-08-13 09:10] LABS: Estimated Average Glucose 387 mg/dl; Hemoglobin A1C 15.1 %
--- NOTE | 2017-08-13 11:22 | Discharge Summary ---
<Kaden Rich - Last Filed: 08/13/17 13:32> - NOTES TO OUTPATIENT PROVIDER Notes to Outpatient Provider: Patient was admitted for hyperglycemia/ uncontrolled type II diabetes. Discharged with insulin Levemir 32 Units qhs and Humalog 10 units tid wm. Also elevated triglycerides despite lipitor 40mg so patient started on Fenofibrate. Patient will need diabetic and nutritional counseling for cholesterol. A1C 15.1 Date of Encounter: 08/13/17 Time of Encounter: 11:22 - Discharge Diagnosis (1) Hyperglycemia Priority: Primary Status: Acute Assessment and Plan: Known history of type II diabetes Presented with elevated blood sugars to > 600 No anion gap, normal beta hydroxybutyrate, VBG pH 7.44 Blood sugars at 312 this morning. Potassium 3.2, replaced with 40mEq x2 since admission. A1C 15.1 Uncontrolled diabetes type II likely due to dehydration and noncompliance. Discharge with Levemir 32 Units qhs, Humalog 10 Units tid. Discontinue home Amaryl. Continue with diabetic diet. Will need to be discharged with insulin and diabetic education regarding. (2) Vision changes Priority: Primary Status: Resolved Assessment and Plan: Resolved. Most likely related to hyperglycemia. (3) Hypertension Priority: Secondary Status: Chronic Assessment and Plan: Bp controlled at 127.83 this morning. Continue with home medications for chronic disease management including lisinopril, metoprolol, and hctz. Continue monitoring bp. Qualifiers: Hypertension type: essential hypertension Qualified Code(s): I10 - Essential (primary) hypertension (4) Dyslipidemia Priority: Secondary Status: Chronic Assessment and Plan: Known history of dyslipidemia on home Lipitor 40mg. TG 1060, Chol 188, LDL and VLDL TNP, HDL 23. Continue with liptor at 40mg and start fenofibrate. Consider nutrition consult. (5) Type II diabetes mellitus, uncontrolled Priority: Primary Status: Chronic Assessment and Plan: Known history of type II diabetes. Discontinue Amaryl. Start with Levemir 32 Units qhs and Humalog 10 Units tid. Check blood sugars: fasting in AM, before bedtime, before dinner, and 2 hours after dinner. Keep log of blood sugars. Qualifiers: Diabetes mellitus termite exterminator insulin use: unspecified assisted insulin use status Diabetes mellitus complication status: without complication Qualified Code(s): E11.65 - Type 2 diabetes mellitus with hyperglycemia Hospital course: Mr. Bautista is a 42 year old male with history of type II diabetes, htn, dyslipidemia, possible afib who presented to the ED with complaint of persistent visual changes/blurriness, tingling and numbness of his extremities, and dizziness with persistently elevated blood sugars. Patients A1C 15.1. Patient had a glucose of > 600 on arrival. Was started on insulin and potassium replaced. Patient did well overnight with control of blood sugars to 300s and resolution of dizziness, numbness, and blurry vision. Lipids were elevated on blood draw. Patient was discharged with changes to medications including Fenofibrate for dyslipidemia, Levemir 32 units qhs, and humalog 10 units tid wm. Patient to discontinue the Amaryl medication. Will need nutritional and diabetic education counseling after discharge. All questions answered and brief counseling completed with patient at bedside. Discharge discussed with: patient - Time Spent with Patient Total time spent providing and/or coordinating discharge services: - Discharge Medications Prescriptions: Fenofibrate [Tricor] 54 mg PO DAILY #30 tablet Insulin DETEMIR [Levemir] 32 unit SQ HS 30 Days #1000 units Insulin LISPRO [HumaLOG] 10 units SQ TIDWM #1000 vial Home Medications: Atorvastatin [Lipitor] 40 mg PO HS 08/12/17 [History] Lisinopril/Hydrochlorothiazide [Zestoretic 20-25 mg Tablet] 1 tab PO DAILY 08/12 [History] Loratadine [Allergy Relief] 10 mg PO DAILY 08/12/17 [History] Metformin HCl [Glucophage] 1,000 mg PO BID 08/12/17 [History] Metoprolol [Lopressor] 50 mg PO BID 08/12/17 [History] Sertraline [Zoloft] 100 mg PO DAILY 08/12/17 [History] Fenofibrate [Tricor] 54 mg PO DAILY #30 tablet 08/13/17 [Rx] Insulin DETEMIR [Levemir] 32 unit SQ HS 30 Days #1000 units 08/13/17 [Rx] Insulin LISPRO [HumaLOG] 10 units SQ TIDWM #1000 vial 08/13/17 [Rx] Allergies/Adverse Reactions: 3 Allergy/AdvReac Type Severity Reaction Status Date / Time No Known Allergies Allergy Verified 08/12/17 14:14 Date of admission: 08/12/17 16:58 Primary care physician: Ivette Marin Consults: 08/12/17 18:58 Consult to Nutrition [CONS] Routine Comment: WT LOSS OF 50LBS PER PATIENT Consulting Provider: NUTRITION Reason for Dietary Consult: Diet Education Discharging clinician: Kaden Cullen) Anticipated date of discharge: 08/13/17 - Constitutional Vitals: Temp Pulse Resp BP Pulse Ox 98 F 84 18 129/65 95 08/13/17 07:00 08/13/17 10:00 08/13/17 07:00 08/13/17 10:00 08/13/17 04:35 General appearance: Present: A&O X 3, pleasant, no acute distress, obese, answers questions appropriately - Head Head exam: Present: atraumatic, normal inspection, normocephalic - Eye Eye exam: Present: EOMI, normal appearance - ENT ENT exam: Present: mucous membranes moist, normal exam - Neck Neck exam general surgery: Present: full ROM, normal inspection, trachea midline - Respiratory Respiratory exam: Present: CTAB - Cardiovascular Cardiovascular exam: Present: RRR, +S1, +S2 - GI/Abdominal GI/Abdominal exam: Present: normal bowel sounds, soft. Absent: tenderness - Extremities Exam Extremities exam: Present: full ROM, warm, radial pulses palpable and symmetrical. Absent: pedal edema Additional comments: thick callus plantar surfaces of feet bilateraly, with normal sensation bilaterally and no open sores or ulcers - Neurological Exam Neurological exam: Present: alert, oriented X3, no focal deficits - Skin Skin exam: Present: dry, intact, normal color, warm - Patient Status Disposition: Home, Self-Care Condition: Good Functional capacity at discharge: independent ambulation Overall status at discharge: patient is progressing back to baseline - Discharge Instructions Instructions: Hyponatremia (GEN), How to Check Your Blood Sugar (GEN), Diabetes Mellitus Type 2 in Adults (GEN) Follow Up With: Ivette Marin DO [Primary Care Provider] - 08/17/17 8:30 am - Diet and Activity Activity: resume usual activities as tolerated Diet: diabetic diet, low fat, low cholesterol, low salt diet <Talon Benton - Last Filed: 08/13/17 17:53> Date of Encounter: 08/13/17 - Discharge Diagnosis (1) Hyperglycemia Status: Acute (2) Vision changes Status: Resolved (3) Hypertension Status: Chronic Qualifiers: Hypertension type: essential hypertension Qualified Code(s): I10 - Essential (primary) hypertension (4) Dyslipidemia Status: Chronic (5) Type II diabetes mellitus, uncontrolled Status: Chronic Qualifiers: Diabetes mellitus termite exterminator insulin use: unspecified assisted insulin use status Diabetes mellitus complication status: without complication Qualified Code(s): E11.65 - Type 2 diabetes mellitus with hyperglycemia Hospital course: Mr. Bautista is a 42 year old male - Time Spent with Patient Total time spent providing and/or coordinating discharge services: Date of admission: 08/12/17 16:58 Primary care physician: Ivette Marin Consults: 08/12/17 18:58 Consult to Nutrition [CONS] Routine Comment: WT LOSS OF 50LBS PER PATIENT Consulting Provider: NUTRITION Reason for Dietary Consult: Diet Education - Constitutional Vitals: Temp Pulse Resp BP Pulse Ox 97.7 F 86 18 133/83 98 08/13/17 11:46 08/13/17 11:46 08/13/17 11:46 08/13/17 11:46 08/13/17 11:46 - Attending Attestation I examined this patient 08/13, and my medical decision-making was reviewed with the Resident Physician. I agree with the documented findings, disposition and treatment plan as described except to the extent set forth below. 42 M admitted for uncontrolled DM with A1C 15, due to non-compliance, FS better controlled on insulin. Safe to discharge home on insulin and supplies, discontinue amaryl, continue metformin, add fenofibrate. follow up with PCP. Rest of details as in resident physician's documentation.
[2017-08-13] MEDS ORDERED: Fenofibrate 54 MG TABLET PO SCH (11:30)
[2017-08-13 11:50] VITALS: BP 133/83
--- NOTE | 2017-08-14 16:42 | Electrocardiograph Report ---
[place] [id number] Test Date: 2017-08-12 Pat Name: Amauri Bautista Department: 103 Room: [id number] Gender: M [place]: EKP : 1975 Requested By: [id number] Order Number: [id number] Reading MD: Amanda Celestin Measurements Intervals [place] Rate: 96 P: 34 CT: 156 QRS: 98 QRSD: 93 T: 15 QT: 338 QTc: 392 Interpretive Statements SINUS RHYTHM BORDERLINE RIGHT AXIS DEVIATION [QRS AXIS > 90] Electronically Signed On 08-14-2017 16:40:02 EDT by Amanda Celestin
== END 2017-08-13 16:40 | disposition home or self-care (01) ==
LOC: EMEROO 15:08 → 2NENU 15:08 → SUATTDRO 16:58 → 2NENU 18:14
PROVIDERS: ADMIT Internal Medicine; ATTEND Internal Medicine

== ENCOUNTER 2020-09-04 15:01 | Observation (INO) ==
[2020-09-04] MEDS ORDERED: Isovue-370 500 ML BOTTLE IVP ONE (15:15)
[2020-09-04 15:31] LABS: Hemoglobin 16.2 g/dL (12.9-16.9); Mean Corpuscular HGB Conc 35.2 g/dL (31.6-35.5); Mean Corpuscular Hemoglobin 30.5 pg (28.0-33.3); Mean Corpuscular Volume 86.5 fL (83.0-100.0); Mean Platelet Volume 8.6 fL (9.4-12.4); Platelet Count 363 K/mcL (140-400); Red Blood Count 5.32 M/mcL (4.19-5.50); Red Cell Distribution Width 12.2 % (11.5-14.5); White Blood Count 12.8 K/mcL (4.3-11.1)
[2020-09-04 15:51] LABS: BUN/Creatinine Ratio 16 (6-26); Blood Urea Nitrogen 11 mg/dL (6-20); Calcium 10.1 mg/dL (8.6-10.3); Carbon Dioxide 24 mEq/L (23-29); Chloride 102 mEq/L (98-107); Glucose 120 mg/dL (70-105); Osmolality,Calculated 279 (280-300); Sodium 134 mEq/L (136-145); Troponin I < 0.03 ng/mL (< 0.04); eGFR For African Americans > 60 (> 60); eGFR For Non-African Americans > 60 (> 60)
[2020-09-04] MEDS ORDERED: Aspirin 325 MG TABLET PO ONE (16:35)
[2020-09-04] MEDS ORDERED: Ondansetron 4 MG/2 ML VIAL IVP PRN (16:37)
[2020-09-04] MEDS ORDERED: Perflutren Lipid Microsphere 1.3 ML in 0.9 % Sodium Chloride 8.7 ML IVP PRN (16:37)
[2020-09-04] MEDS ORDERED: Naloxone 0.4 MG/ML INJ IVP PRN (16:37)
[2020-09-04] MEDS ORDERED: D5% in Water 1,000 ML IVC PRN (17:02)
[2020-09-04] MEDS ORDERED: *HR* Dextrose 50 % in Water (Vial) 50 ML VIAL IVP PRN (17:02)
[2020-09-04] MEDS ORDERED: Dextrose Gel 15 GM/37.5 ML TUBE PO PRN ×2 (17:02)
[2020-09-04 18:01] LABS: Bacteria,Urine Few per hpf (None-Few); Bilirubin,Urine Negative (Negative); Blood,Urine Negative (Negative); Clarity,Urine Clear (Clear); Color,Urine Yellow (Yellow); Glucose,Urine (UA) Normal (Normal); Ketones,Urine Negative (Negative); Leukocyte Esterase,Urine Negative (Negative); Mucus,Urine Few per lpf (None-Few); Nitrite,Urine Negative (Negative); Protein,Urine 100 mg/dL (Neg-Trace); RBC,Urine 0-3 per hpf (0-3); Specific Gravity,Urine > 1.030 (1.010-1.025); Squamous Epithelial Cell,Urine Few per hpf (None-Few); Urobilinogen,Urine Normal (Normal); WBC,Urine 0-3 per hpf (0-3)
[2020-09-04] MEDS: Nicotine 21 MG PATCH.TD24 TD SCH (18:01)
[2020-09-04 18:03] LABS: Amphetamine Screen,Urine Negative ng/mL (Cutoff=1000); Barbiturate Screen,Urine Negative ng/mL (Cutoff=200); Benzodiazepines Screen,Urine Negative ng/mL (Cutoff=200); Cannabinoid Screen,Urine Negative ng/mL (Cutoff = 50); Cocaine Screen,Urine Negative ng/mL (Cutoff= 300); Opiate Screen,Urine Negative ng/mL (Cutoff=300); Phencyclidine Screen,Urine Negative ng/mL (Cutoff=25)
[2020-09-04] MEDS ORDERED: Insulin DETEMIR 100 UNIT/ML X5UNITS SUBQ SCH (21:00)
[2020-09-05 05:53] LABS: Basophils % 0.4 %; Eosinophils # 0.2 K/mcL (0.0-0.6); Eosinophils % 1.4 %; Hematocrit 46.5 % (37.5-50.1); Hemoglobin 16.1 g/dL (12.9-16.9); Immature Granulocytes % 0.3 % (0-4); Lymphocytes # 3.8 K/mcL (0.6-4.6); Lymphocytes % 34.3 %; Mean Corpuscular HGB Conc 34.6 g/dL (31.6-35.5); Mean Corpuscular Hemoglobin 30.7 pg (28.0-33.3); Mean Corpuscular Volume 88.6 fL (83.0-100.0); Mean Platelet Volume 8.4 fL (9.4-12.4); Monocytes # 0.7 K/mcL (0.0-1.3); Monocytes % 6.1 %; Neutrophils # 6.4 K/mcL (1.6-8.9); Platelet Count 328 K/mcL (140-400); Red Blood Count 5.25 M/mcL (4.19-5.50); Red Cell Distribution Width 12.6 % (11.5-14.5); Segmented Neutrophils % 57.5 %
[2020-09-05 06:01] LABS: Estimated Average Glucose 146 mg/dl; Hemoglobin A1C 6.7 %; INR 1.1
[2020-09-05 06:16] LABS: BUN/Creatinine Ratio 17 (6-26); Blood Urea Nitrogen 13 mg/dL (6-20); Calcium 9.8 mg/dL (8.6-10.3); Carbon Dioxide 27 mEq/L (23-29); Chloride 100 mEq/L (98-107); Chol/HDL Ratio 6.9 (0-4.9); Cholesterol 248 mg/dL (< 200); Glucose 114 mg/dL (70-105); HDL Cholesterol 36 mg/dL (40-59); LDL Cholesterol,Calculated 178 mg/dL (< 100); Osmolality,Calculated 279 (280-300); Sodium 134 mEq/L (136-145); Triglycerides 169 mg/dL (< 150); Troponin I < 0.03 ng/mL (< 0.04); eGFR For African Americans > 60 (> 60); eGFR For Non-African Americans > 60 (> 60)
[2020-09-05] MEDS: Nicotine 21 MG PATCH.TD24 TD SCH (07:34)
[2020-09-05] MEDS: Insulin LISPRO 300 UNITS/3 ML VIAL SUBQ SCH ×3 (08:18→16:19)
[2020-09-05] MEDS ORDERED: Aspirin Enteric Coated 81 MG Tablet PO SCH (09:00)
[2020-09-05 14:59] VITALS: BP 144/87
== END 2020-09-05 17:41 | disposition home or self-care (01) ==
LOC: 3BNU 15:01 → EMEROOARM 15:01 → SUATTDRO 16:48 → 3BNU 17:22
PROVIDERS: ADMIT Internal Medicine; ATTEND Internal Medicine

== ENCOUNTER 2021-02-12 22:49 | Inpatient (IN) ==
[2021-02-12 23:16] LABS: Basophils % 0.3 %; Eosinophils # 0.1 K/mcL (0.0-0.6); Eosinophils % 0.6 %; Hematocrit 46.1 % (37.5-50.1); Hemoglobin 16.3 g/dL (12.9-16.9); Immature Granulocytes % 0.4 % (0-4); Lymphocytes # 4.2 K/mcL (0.6-4.6); Lymphocytes % 26.6 %; Mean Corpuscular HGB Conc 35.4 g/dL (31.6-35.5); Mean Corpuscular Hemoglobin 30.5 pg (28.0-33.3); Mean Corpuscular Volume 86.2 fL (83.0-100.0); Mean Platelet Volume 9.6 fL (9.4-12.4); Monocytes # 0.9 K/mcL (0.0-1.3); Monocytes % 5.4 %; Neutrophils # 10.6 K/mcL (1.6-8.9); Platelet Count 372 K/mcL (140-400); Red Blood Count 5.35 M/mcL (4.19-5.50); Red Cell Distribution Width 12.5 % (11.5-14.5); Segmented Neutrophils % 66.7 %; White Blood Count 15.9 K/mcL (4.3-11.1)
[2021-02-12] MEDS ORDERED: 0.9 % Sodium Chloride 1,000 ML IVC ONE (23:22)
[2021-02-12 23:26] LABS: INR 1.1; Prothrombin Time 12.1 Seconds (9.4-12.1)
[2021-02-12] MEDS ORDERED: *HR* Adenosine 6 MG/2 ML VIAL IVP ONE (23:27)
[2021-02-12 23:28] LABS: Activated Partial Thrombo Time 31.6 Seconds (26.0-36.0)
[2021-02-12 23:36] LABS: VBG HCO3 23 mEq/L (21-27); VBG PCO2 38 mmHg (41-51); VBG PH 7.39 pH Units (7.32-7.42); VBG PO2 41 mmHg (25-50)
[2021-02-12 23:49] LABS: BUN/Creatinine Ratio 10 (6-26); Blood Urea Nitrogen 8 mg/dL (6-20); Carbon Dioxide 21 mEq/L (23-29); Chloride 94 mEq/L (98-107); Glucose 690 mg/dL (70-105); Osmolality,Calculated 295 (280-300); Potassium 4.1 mEq/L (3.5-5.1); Sodium 127 mEq/L (136-145); eGFR For African Americans > 60 (> 60); eGFR For Non-African Americans > 60 (> 60)
[2021-02-12] MEDS ORDERED: 0.9 % Sodium Chloride 1,000 ML IV ONE (23:50)
[2021-02-13] MEDS ORDERED: Insulin Human Regular 10 UNIT in 0.9 % Sodium Chloride 10 ML IV ONE (00:22)
[2021-02-13 00:29] LABS: Bilirubin,Urine Negative (Negative); Blood,Urine Negative (Negative); Clarity,Urine Clear (Clear); Color,Urine Colorless (Yellow); Glucose,Urine (UA) >=1000 mg/dL (Normal); Ketones,Urine Negative (Negative); Leukocyte Esterase,Urine Negative (Negative); Nitrite,Urine Negative (Negative); Protein,Urine Negative (Neg-Trace); RBC,Urine 0-3 per hpf (0-3); Specific Gravity,Urine > 1.030 (1.010-1.025); Urobilinogen,Urine Normal (Normal); WBC,Urine 0-3 per hpf (0-3)
[2021-02-13] MEDS: Insulin DETEMIR 100 UNIT/ML X5UNITS SUBQ SCH ×2 (01:01→21:02)
[2021-02-13] MEDS: Aspirin 81 MG TAB.CHEW PO SCH ×2 (01:02→08:21)
[2021-02-13] MEDS ORDERED: Naloxone 0.4 MG/ML INJ IVP PRN (01:13)
[2021-02-13] MEDS ORDERED: Ondansetron ODT 4 MG TAB.RAPDIS SL PRN (01:13)
[2021-02-13] MEDS ORDERED: Dextrose Gel 15 GM/37.5 ML TUBE PO PRN ×4 (01:20→23:32)
[2021-02-13] MEDS ORDERED: D5% in Water 1,000 ML IVC PRN ×2 (01:20→23:32)
[2021-02-13] MEDS ORDERED: *HR* Dextrose 50 % in Water (Syg) 50 ML SYRINGE IVP PRN ×2 (01:20→23:32)
[2021-02-13] MEDS ORDERED: Perflutren Lipid Microsphere 1.3 ML in 0.9 % Sodium Chloride 8.7 ML IVP PRN (01:36)
[2021-02-13] MEDS: Nicotine 21 MG PATCH.TD24 TD SCH (01:59)
[2021-02-13] MEDS: 0.9 % Sodium Chloride 1,000 ML IVC SCH ×2 (04:33→13:50)
[2021-02-13 05:09] LABS: Basophils # 0.1 K/mcL (0.0-0.2); Basophils % 0.5 %; Eosinophils # 0.1 K/mcL (0.0-0.6); Eosinophils % 1.1 %; Hemoglobin 13.7 g/dL (12.9-16.9); Immature Granulocytes % 0.3 % (0-4); Lymphocytes # 4.2 K/mcL (0.6-4.6); Lymphocytes % 36.6 %; Mean Corpuscular HGB Conc 35.1 g/dL (31.6-35.5); Mean Corpuscular Volume 85.3 fL (83.0-100.0); Mean Platelet Volume 9.4 fL (9.4-12.4); Monocytes # 0.6 K/mcL (0.0-1.3); Monocytes % 4.9 %; Neutrophils # 6.5 K/mcL (1.6-8.9); Platelet Count 261 K/mcL (140-400); Red Blood Count 4.57 M/mcL (4.19-5.50); Red Cell Distribution Width 12.4 % (11.5-14.5); Segmented Neutrophils % 56.6 %; White Blood Count 11.6 K/mcL (4.3-11.1)
[2021-02-13 05:23] LABS: BUN/Creatinine Ratio 12 (6-26); Blood Urea Nitrogen 7 mg/dL (6-20); Calcium 8.2 mg/dL (8.6-10.3); Carbon Dioxide 23 mEq/L (23-29); Chloride 103 mEq/L (98-107); Chol/HDL Ratio 6.3 (0-4.9); Cholesterol 169 mg/dL (< 200); Glucose 292 mg/dL (70-105); HDL Cholesterol 27 mg/dL (40-59); LDL Cholesterol,Calculated 97 mg/dL (< 100); Magnesium 1.4 mg/dL (1.6-2.6); Osmolality,Calculated 285 (280-300); Phosphorous 3.2 mg/dL (2.7-4.5); Potassium 3.3 mEq/L (3.5-5.1); Sodium 133 mEq/L (136-145); Triglycerides 227 mg/dL (< 150); eGFR For African Americans > 60 (> 60); eGFR For Non-African Americans > 60 (> 60)
[2021-02-13 05:25] LABS: Albumin 3.2 g/dL (3.5-5.7); Albumin/Globulin Ratio 1.6 (1.1-2.2); Bilirubin,Direct 0.1 mg/dL (0.0-0.2); Bilirubin,Indirect 0.4 mg/dL (0.0-1.0); Bilirubin,Total 0.5 mg/dL (0.3-1.0); Total Protein 5.2 g/dL (6.4-8.9)
[2021-02-13 05:38] LABS: Thyroid Stimulating Hormone 2.026 mcIU/mL (0.340-5.600)
[2021-02-13] MEDS ORDERED: *HR* Heparin 5,000 UNIT/ML VIAL SQ SCH (06:00)
[2021-02-13] MEDS ORDERED: *HR* Heparin 5,000 UNIT/ML VIAL IVP PRN (06:09)
[2021-02-13] MEDS ORDERED: *HR* Heparin 5,000 UNIT/ML VIAL IVP ONE (06:09)
[2021-02-13 06:39] LABS: Hematocrit 38.4 % (37.5-50.1); Hemoglobin 13.9 g/dL (12.9-16.9); Mean Corpuscular HGB Conc 36.2 g/dL (31.6-35.5); Mean Corpuscular Hemoglobin 30.8 pg (28.0-33.3); Mean Corpuscular Volume 85.1 fL (83.0-100.0); Mean Platelet Volume 9.3 fL (9.4-12.4); Platelet Count 267 K/mcL (140-400); Red Blood Count 4.51 M/mcL (4.19-5.50); Red Cell Distribution Width 12.4 % (11.5-14.5); White Blood Count 11.3 K/mcL (4.3-11.1)
[2021-02-13 06:47] LABS: INR 1.1; Prothrombin Time 12.3 Seconds (9.4-12.1)
[2021-02-13 06:50] LABS: Heparin anti-factor XA UFH < 0.04 IU/mL (0.30-0.70)
[2021-02-13] MEDS ORDERED: Potassium Chloride Elixir 20 MEQ/15 ML UDC PO ONE (07:28)
[2021-02-13] MEDS ORDERED: Potassium Chloride 40 MEQ, Lidocaine 1% 2 ML in 0.9 % Sodium Chloride 500 ML IVPB ONE (07:28)
[2021-02-13] MEDS: Heparin 25,000UNIT/250ML 1/2NS 25,000 UNIT/250 ML IV.SOLN IVC SCH (07:47)
[2021-02-13] MEDS: Insulin LISPRO 300 UNITS/3 ML VIAL SUBQ SCH ×3 (08:19→16:36)
[2021-02-13 10:56] LABS: Estimated Average Glucose 315 mg/dl; Hemoglobin A1C 12.6 %
[2021-02-14] MEDS: 0.9 % Sodium Chloride 1,000 ML IVC SCH ×2 (00:06→08:38)
[2021-02-14] MEDS: Nicotine 21 MG PATCH.TD24 TD SCH (02:19)
[2021-02-14 02:51] LABS: Basophils % 0.3 %; Eosinophils # 0.2 K/mcL (0.0-0.6); Eosinophils % 1.1 %; Hematocrit 39.5 % (37.5-50.1); Hemoglobin 13.7 g/dL (12.9-16.9); Immature Granulocytes % 0.3 % (0-4); Lymphocytes # 4.2 K/mcL (0.6-4.6); Lymphocytes % 29.9 %; Mean Corpuscular HGB Conc 34.7 g/dL (31.6-35.5); Mean Corpuscular Hemoglobin 30.1 pg (28.0-33.3); Mean Corpuscular Volume 86.8 fL (83.0-100.0); Mean Platelet Volume 9.5 fL (9.4-12.4); Monocytes # 0.5 K/mcL (0.0-1.3); Monocytes % 3.9 %; Neutrophils # 9.1 K/mcL (1.6-8.9); Platelet Count 289 K/mcL (140-400); Red Blood Count 4.55 M/mcL (4.19-5.50); Red Cell Distribution Width 12.3 % (11.5-14.5); Segmented Neutrophils % 64.5 %
[2021-02-14 03:14] LABS: BUN/Creatinine Ratio 14 (6-26); Blood Urea Nitrogen 8 mg/dL (6-20); Calcium 8.1 mg/dL (8.6-10.3); Carbon Dioxide 23 mEq/L (23-29); Chloride 105 mEq/L (98-107); Glucose 225 mg/dL (70-105); Magnesium 1.4 mg/dL (1.6-2.6); Osmolality,Calculated 283 (280-300); Potassium 3.7 mEq/L (3.5-5.1); Sodium 134 mEq/L (136-145); eGFR For African Americans > 60 (> 60); eGFR For Non-African Americans > 60 (> 60)
[2021-02-14] MEDS: Heparin 25,000UNIT/250ML 1/2NS 25,000 UNIT/250 ML IV.SOLN IVC SCH (03:15)
[2021-02-14] MEDS: *HR* Heparin 5,000 UNIT/ML VIAL IVP PRN ×2 (03:16→10:27)
[2021-02-14] MEDS ORDERED: Perflutren Lipid Microsphere 1.3 ML in 0.9 % Sodium Chloride 8.7 ML IVP PRN (07:53)
[2021-02-14] MEDS: Insulin LISPRO 300 UNITS/3 ML VIAL SUBQ SCH ×2 (08:38→12:22)
[2021-02-14] MEDS ORDERED: Aspirin 81 MG TAB.CHEW PO SCH (09:00)
[2021-02-14 10:53] VITALS: BP 131/60; PULSE 97; TEMP 97.9; O2SAT 98
[2021-02-14] MEDS ORDERED: *HR* Rivaroxaban 15 MG TABLET PO SCH (14:00)
[2021-02-14] MEDS ORDERED: Insulin LISPRO 300 UNITS/3 ML VIAL SUBQ SCH (21:00)
== END 2021-02-14 16:44 | disposition home or self-care (01) | DRG 201 ==
LOC: 2NENU 22:49 → EMEROOARM 22:49 → 2NENU 02-13 01:28 → SUATTDRO 02-13 01:54
PROVIDERS: ADMIT Internal Medicine; ATTEND Internal Medicine